=== PATIENT | male | born 1950 | race Caucasian/White ===

== ENCOUNTER 2016-12-23 07:11 | Emergency (ER) | payer SELFPAY ==
[~2016-12-23] VITALS: Ht 179.1 cm; Wt 83.9 kg
[~2016-12-23 07:11] MED LIST: ATORVASTATIN CA10 M1 PO; BACTRIM DS TAB1 EACH PO; CYCLOBENZAPRINE10 M1 PO; METOPROLOL SUCC25 M1 PO; METRONIDAZOLE500 M1 PO; PRINIVIL10 M1 PO; PROAIR HFA0.09 MG/Ac INH
--- NOTE | 2016-12-23 08:25 | ED UPPER/LOWER EXTREMITY COMPL ---
History of Present Illness General Chief Complaint: Upper Extremity Problem Stated Complaint: RT ELBOW PAIN " BANGED IT ON A DUMPSTER YESTERDAY" Source: patient, old records Exam Limitations: no limitations Vital Signs & Intake/Output Vital Signs & Intake/Output Vital Signs Date Time Temp Pulse Resp B/P B/P Pulse O2 O2 Flow FiO2 Mean Ox Delivery Rate 12/23 0715 97.9 74 18 210/83 98 Room Air Allergies Coded Allergies: Penicillins (Severe, ANAPHYLAXIS 10/03/15) Reconcile Medications Atorvastatin Calcium 10 MG TABLET 1 TAB PO DAILY CHOL (Reported) Lisinopril (Prinivil) 10 MG TABLET 1 TAB PO DAILY HIGH BLOOD PRESSURE ( Reported) Metoprolol Succinate 25 MG TAB 1 TAB PO DAILY HTN (Reported) Triage Note: PT STATES THAT HE HIT HIS R ELBOW INNER ASPECT ON THE BONE YESTERDAY ON A DUMPSTER WHEN HE WAS TRYING TO THROW CARD BOARD IN IT Triage Nurses Notes Reviewed? yes Onset: Afternoon Duration: hour(s):, constant, continues in ED Timing: recent history Severity: moderate Pain/Injury Location: Right: Elbow. Method of Injury: direct blow Modifying Factors: Improves With: rest. Worsens With: movement. Associated Symptoms: swelling, GCS 15 since, stiffness HPI: Afternoon prior to admission patient banged inner aspect of right elbow on a dumpster the complaint of mild to moderate sharp pain nonradiating worse with palpation and movement. He denies other injury fever chills nausea vomiting diarrhea abdominal pain chest pain shortness breath headache dysuria rash bleeding. Past History Travel History Traveled to [place] past 21 day No Medical History Any Pertinent Medical History? see below for history Neurological: CVA (2012) EENT: NONE Cardiovascular: hypertension, HIGH CHOL ARRTHYMIA Respiratory: asthma Gastrointestinal: NONE Hepatic: NONE Renal: NONE Musculoskeletal: NONE Psychiatric: depression Endocrine: NONE Blood Disorders: NONE Cancer(s): NONE HEAT TREAT WORKER/Reproductive: NONE Other Medical Hx: As per records had a TIA/CVA and was prescribed NOrvasc and Aspirin on dc but has not been compliant History of MRSA: No History of VRE: No History of CDIFF: No Tetanus Vaccine: 09/14/15 Surgical History Surgical History: N Psychosocial History Who do you live with Friend Services at Home None What is your primary language Danish Tobacco Use: Current Daily Use Daily Tobacco Use Amount/Type: => 5 Cigarettes daily ETOH Use: denies use Illicit Drug Use: denies illicit drug use Family History Family History, If Any: MOTHER FH: arrhythmia BROTHER FH: epilepsy Hx Contributory? No Review of Systems Review of Systems Constitutional: Reports: no symptoms. EENTM: Reports: no symptoms. Respiratory: Reports: no symptoms. Cardiovascular: Reports: no symptoms. Gastrointestinal/Abdominal: Reports: no symptoms. Genitourinary: Reports: no symptoms. Musculoskeletal: Reports: see HPI, joint pain. Skin: Reports: no symptoms. Neurological/Psychological: Reports: no symptoms. Hematologic/Endocrine: Reports: no symptoms. Immunological: Reports: no symptoms. All Other Systems: Reviewed and Negative Physical Exam Physical Exam General Appearance: well developed/nourished, alert, awake, anxious, mild distress Head: atraumatic, normal appearance Eyes: Bilateral: normal appearance, PERRL, EOMI. Ears, Nose, Throat: normal pharynx, normal ENT inspection, hearing grossly normal Neck: normal inspection, supple, full range of motion, no midline tenderness Cardiovascular/Respiratory: normal breath sounds, normal peripheral pulses, regular rate/rhythm, no respiratory distress Peripheral Pulses: 4+ carotid (R), 4+ carotid (L) Back: normal inspection, normal range of motion Shoulder Left: normal range of motion, normal inspection Shoulder Right: normal range of motion, normal inspection Elbow Left: normal range of motion, normal inspection Elbow Right: normal range of motion, swelling, tenderness, bone tenderness, soft tissue tenderness Hand Left: normal inspection, normal range of motion Hand Right: normal inspection, normal range of motion Upper Extremity Reflexes: 2+: bicep (R), bicep (L). Leg Left: normal range of motion, normal inspection Leg Right: normal range of motion, normal inspection Hip Left: normal range of motion, normal inspection Hip Right: normal range of motion, normal inspection Knee Left: normal range of motion, normal inspection Knee Right: normal range of motion, normal inspection Foot Left: normal inspection, normal range of motion Foot Right: normal inspection, normal range of motion Lower Extremity Reflexes: 2+: knee (R), knee (L). Neurologic/Tendon: normal sensation, normal motor functions, normal tendon functions Skin: intact, normal color, warm/dry Lymphatic: no anterior cervical audra Progress Differential Diagnosis: contusion, fracture Plan of Care: Orders Procedure Date/time Status XRY-ELBOW 3 OR MORE VIEWS, R 12/23 0617 Active Diagnostic Imaging: Viewed by Me: Radiology Read. Discussed w/RAD: Radiology Read. Radiology Impression: no acute abnormality, no fracture, no dislocation Departure Departure Time of Disposition: 850 Disposition: HOME OR SELF CARE Condition: Stable Clinical Impression Primary Impression: Contusion of right elbow, initial encounter Qualifiers: Encounter type: initial encounter Qualified Code: S50.01XA - Contusion of right elbow, initial encounter Referrals: MARIA DEL CARMEN JACKSON APRN (PCP/Family) Departure Forms: Customer Survey General Discharge Information RELEASE- WORK Prescriptions: Current Visit Scripts Ibuprofen 1 TAB PO Q6PRN PRN pain #50 TAB with food Tramadol HCl (Ultram) 1-2 TAB PO Q6PRN PRN severe pain #30 TAB
--- NOTE | 2016-12-23 08:45 | RADIOLOGY REPORT ---
EXAMINATION: XR ELBOW, RIGHT CLINICAL INFORMATION: Hit elbow on dumpster. COMPARISON: None available at time of dictation. TECHNIQUE: AP, lateral, and oblique views of the right elbow. FINDINGS: The visualized osseous structures appear intact without evidence of acute fracture. The soft tissue is grossly normal. There is no radiopaque foreign body identified. IMPRESSION: No fracture. No dislocation. No radiopaque foreign body.
[2016-12-23] MEDS ORDERED: ULTRAM50 M1 PO (08:52)
[2016-12-23] MEDS ORDERED: IBUPROFEN600 M1 PO (08:52)
[2016-12-23 08:56] VITALS: BP 158/60
== END 2016-12-23 08:57 ==
LOC: ERH 07:11
DX: S50.01XA Contusion of right elbow, initial encounter (principal); W22.8XXA Striking against or struck by other objects, initial encounter; Y93.9 Activity, unspecified; Y92.9 Unspecified place or not applicable
CPT/HCPCS: 73080-RT